=== PATIENT | male | born 1960 | race African-American/Black ===

== ENCOUNTER 2020-07-19 15:45 | Emergency (ER) | payer MEDICAID ==
[~2020-07-19] VITALS: Ht 188 cm; Wt 100.0 kg
[2020-07-19 15:50] VITALS: BP 111/73
[2020-07-19] MEDS ORDERED: MAGNESIUM/ALUMINUM HYDROXIDE/SIMETHICONE 30ML UDC PO STA (16:44)
[2020-07-19] MEDS ORDERED: VISCOUS LIDOCAINE 2% 15 ML UDC PO STA (16:44)
[2020-07-19] MEDS ORDERED: DICYCLOMINE 10 MG/5 ML ORAL SYR PO STA (16:44)
[2020-07-19 17:26] LABS: BASOPHILS % 1.2 % (0.0-2.0); EOSINOPHILS % 1.2 % (0.0-5.0); HEMATOCRIT. 42.1 % (42.0-52.0); HEMOGLOBIN. 14.3 g/dL (14.0-18.0); LYMPHOCYTES % 36.1 % (20.0-50.0); MEAN CORPUSCULAR VOLUME 88.4 fL (80.0-94.0); MEAN PLATELET VOLUME 6.3 fl (7.4-10.4); MONOCYTES % 4.9 % (2.0-8.0); NEUTROPHILS % 56.6 % (40.0-76.0); PLATELET 346 x1000/uL (130-400); RED BLOOD CELL COUNT 4.76 mill/uL (4.7-6.1); RED CELL DISTRIBUTION WIDTH 15.4 % (11.6-14.6)
[2020-07-19 17:32] LABS: CHLORIDE 107 mEq/L (98-107)
[2020-07-19 17:36] LABS: ETHANOL BLOOD < 10 mg/dL
== END 2020-07-19 18:26 | disposition home or self-care (01) ==
LOC: ER 15:45
DX: R10.13 Epigastric pain (principal); R11.2 Nausea with vomiting, unspecified
CPT/HCPCS: 36415; 71045; 80053; 80320; 85025; 99284; G0480